=== PATIENT | female | born 1940 ===

== ENCOUNTER 2017-09-10 08:59 | Outpatient (CLI) | payer OTHER ==
[~2017-09-10] VITALS: Ht 172.7 cm; Wt 107.0 kg
== END 2017-09-10 09:15 | disposition home or self-care (01) ==
LOC: OFIC 805 08:59
DX: J30.89 Other allergic rhinitis (principal); R09.81 Nasal congestion; S00.25 Superficial foreign body of eyelid and periocular area; X58.XXXS Exposure to other specified factors, sequela